=== PATIENT | male | born 1965 | race African-American/Black ===

== ENCOUNTER 2017-07-22 18:54 | Emergency (ER) | payer SELFPAY ==
[~2017-07-22 18:54] MED LIST: Iopamidol 370 76% 100 ML VIAL ONE
[2017-07-22 19:17] LABS: #Eosinphils 0.1 thou/uL (0.0-0.7); #Lymphocytes 1.8 thou/uL (1.20-3.40); #Monocytes 0.7 thou/uL (0.11-0.59); #Neutrophils 5.3 thou/uL (1.40-6.50); %Basophils 0.6 % (0.0-1.0); %Eosinophils 1.8 % (0.0-10.0); %Lymphocytes 22.5 % (21.0-51.0); %Monocytes 8.9 % (0.0-10.0); %Neutrophils 66.2 % (42.0-75.0); Mean Corpuscular Hemoglobin 27.9 pg (27.0-31.0); Mean Corpuscular Volume 84.6 fl (80.0-94.0); Mean Platelet Volume 8.6 fL (7.4-10.4); Platelet Count 230 thou/uL (130-400); RBC Distribution Width 12.8 % (11.5-14.5); Red Blood Cell (RBC) Count 5.36 mill/uL (4.70-6.10)
[2017-07-22 19:40] LABS: ALT (SGPT) 15 U/L (8-55); AST (SGOT) 18 U/L (5-34); Alkaline Phosphatase 109 U/L (40-150); Anion Gap 11 mmol/L (10-20); BUN (Urea Nitrogen) 10 mg/dL (8.4-25.7); Bilirubin, Total 0.9 mg/dL (0.2-1.2); Calc. Creatinine Clearance 0 mL/min (70-130); Calcium 8.9 mg/dL (7.8-10.44); Carbon Dioxide 27 mmol/L (22-29); Chloride 104 mmol/L (98-107); Estimated GFR-MDRD Greater than 90; Globulin 3.4 g/dL (2.4-3.5); Glucose 92 mg/dL (70-105); Potassium 3.9 mmol/L (3.5-5.1); Protein, Total 7.4 g/dL (6.0-8.3); Sodium 138 mmol/L (136-145)
[2017-07-22 19:48] LABS: Bilirubin Negative (Negative); Blood, Urine Negative (Negative); Clarity CLEAR (Clear); Glucose, Urine (Dipstick) Negative (Negative); Leukocyte Moderate (Negative); Nitrite Negative (Negative); Protein, Urine (Dipstick) Negative (Neg-Trace); Specific Gravity, Urine 1.025 (1.002-1.036); Urobilinogen 0.2 mg/dL (0.2-1.0); pH, Urine 6.5 (5.0-9.0)
[2017-07-22 19:50] LABS: Bacteria/HPF None Seen HPF (None Seen); Hyaline Casts/LPF 4-6 HYALINE CAST LPF (0-3 Hyaline); Pathc Cast-AUWi Flag 0.14 (0-2.49); RBC/HPF 0-3 HPF (0-3); Squamous Epithelial 0-3 HPF (0-3)
--- NOTE | 2017-07-22 21:08 | CT ---
CT ABDOMEN AND PELVIS WITH IV CONTRAST 07/22/17 HISTORY: Abdominal pain. FINDINGS: There are mild dependent changes in the lung bases. Small low density lesions are seen in the liver, likely cyst. The largest measuring about 13 mm in the right lobe. The spleen, pancreas and adrenal gl ands are normal. No calcified gallstones are seen. Multiple bilateral renal cysts are present. No aldo e air is seen. No lymphadenopathy identified. A small amount of free fluid is seen in the abdomen or pelvis. There is diffuse thickening in the wall of the colon. Prostate is enlarged. There are vascula r calcifications without evidence of aneurysmal dilatation of the abdominal aorta. A small hiatal her cailin is present. There are degenerative changes in the spine. There are degenerative changes in the spine. IMPRESSION: 1. Probable hepatic cysts. 2. Bilateral renal cysts. 3. Small hiatal hernia. 4. Findings suspicious for colitis. Further evaluation with colonoscopy is recommended. 5. Prostatic enlargement. POS: [facility]
== END 2017-07-22 22:01 | disposition home or self-care (01) ==
LOC: ERS 18:54
DX: K52.9 Noninfective gastroenteritis and colitis, unspecified (principal); I10 Essential (primary) hypertension; F17.210 Nicotine dependence, cigarettes, uncomplicated; Z71.6 Tobacco abuse counseling
CPT/HCPCS: 36415; 74177; 80053; 81003; 81015; 83690; 85025; 96360; 99406

== ENCOUNTER 2017-09-21 20:44 | Emergency (ER) | payer SELFPAY ==
[2017-09-21 21:17] LABS: #Basophils 0.1 thou/uL (0.0-0.2); #Eosinphils 0.2 thou/uL (0.0-0.7); #Lymphocytes 2.2 thou/uL (1.20-3.40); #Monocytes 0.4 thou/uL (0.11-0.59); #Neutrophils 2.6 thou/uL (1.40-6.50); %Eosinophils 4.3 % (0.0-10.0); %Monocytes 7.1 % (0.0-10.0); %Neutrophils 47.6 % (42.0-75.0); Hemoglobin 14.6 g/dL (14.0-18.0); Mean Corpuscular HGB CONC 33.1 g/dL (32.0-36.0); Mean Corpuscular Volume 84.5 fL (78.0-98.0); Mean Platelet Volume 8.7 fL (7.4-10.4); Platelet Count 226 thou/uL (130-400); RBC Distribution Width 12.8 % (11.5-14.5); Red Blood Cell (RBC) Count 5.23 mill/uL (4.70-6.10); White Blood Cell (WBC) Count 5.5 thou/uL (4.8-10.8)
[2017-09-21 21:41] LABS: ALT (SGPT) 19 U/L (8-55); AST (SGOT) 31 U/L (5-34); Albumin 4.4 g/dL (3.5-5.0); Alkaline Phosphatase 107 U/L (40-150); Anion Gap 11 mmol/L (10-20); BUN (Urea Nitrogen) 15 mg/dL (8.4-25.7); Calc. Creatinine Clearance 0 mL/min (70-130); Calcium 9.4 mg/dL (7.8-10.44); Carbon Dioxide 26 mmol/L (22-29); Chloride 106 mmol/L (98-107); Estimated GFR-MDRD Greater than 90; Globulin 3.9 g/dL (2.4-3.5); Glucose 86 mg/dL (70-105); Lipase 27 U/L (8-78); Potassium 4.4 mmol/L (3.5-5.1); Protein, Total 8.3 g/dL (6.0-8.3); Sodium 139 mmol/L (136-145)
[2017-09-22 00:50] LABS: Bilirubin Small (Negative); Blood, Urine Negative (Negative); Clarity CLOUDY (Clear); Glucose, Urine (Dipstick) Negative (Negative); Leukocyte Moderate (Negative); Nitrite Negative (Negative); Protein, Urine (Dipstick) Trace mg/dL (Neg-Trace); Specific Gravity, Urine 1.033 (1.002-1.036); Urobilinogen 0.2 mg/dL (0.2-1.0); pH, Urine 5.5 (5.0-9.0)
[2017-09-22 00:53] LABS: Bacteria/HPF None Seen HPF (None Seen); WBC/HPF 21-50 HPF (0-3)
[2017-09-22 00:56] LABS: Hyaline Casts/LPF 0-3 HYALINE CAST LPF (0-3 Hyaline); Other Casts/LPF None Seen LPF (0-3 Hyaline); Oval Fat Bodies/HPF None Seen HPF (None Seen); Renal Epithelial None Seen HPF (0-3); Sperm/HPF None Seen HPF (None Seen); Transitional Epithelial NONE SEEN HPF (0-3); Trichomonas/HPF None Seen HPF (None Seen); Yeast-All Forms None Seen HPF (None Seen)
[2017-09-22] MEDS ORDERED: Bisacodyl 10 MG SUPP ONE (01:35)
--- NOTE | 2017-09-22 08:03 | RAD ---
KUB: Date: 09/22/17 COMPARISON: None. HISTORY: Abdominal pain. FINDINGS: Supine imaging is provided, limiting assessment for free intraperitoneal air and small bowel obstruct ion. The bowel gas pattern appears nonobstructed. IMPRESSION: Nonobstructed bowel gas pattern. POS: [facility]
== END 2017-09-22 03:03 | disposition home or self-care (01) ==
LOC: ERS 20:44
DX: K59.00 Constipation, unspecified (principal); N41.9 Inflammatory disease of prostate, unspecified; I10 Essential (primary) hypertension; N39.0 Urinary tract infection, site not specified; F17.210 Nicotine dependence, cigarettes, uncomplicated
CPT/HCPCS: 36415; 74018; 80053; 81003; 81015; 83690; 85025; 87077; 87086

== ENCOUNTER 2022-02-19 14:44 | Emergency (ER) | payer SELFPAY ==
[2022-02-19 17:33] LABS: SARS-CoV-2 NAA Rapid Test Not Detected (NotDetected)
== END 2022-02-19 18:05 | disposition home or self-care (01) ==
LOC: ERS 14:44
DX: B34.9 Viral infection, unspecified (principal); I10 Essential (primary) hypertension; F17.210 Nicotine dependence, cigarettes, uncomplicated; Z20.822 Contact with and (suspected) exposure to COVID-19
CPT/HCPCS: 71045

== ENCOUNTER 2023-10-18 08:09 | Observation (INO) | payer SELFPAY ==
[2023-10-18 08:44] LABS: #Basophils 0.05 10x3/uL (0.0-0.2); %Basophils 0.9 % (0.0-1.0); %Eosinophils 2.6 % (0.0-10.0); %Monocytes 8.6 % (0.0-10.0); %Neutrophils 51.7 % (42.0-75.0); Hematocrit 47.7 % (42.0-52.0); Hemoglobin 15.1 g/dL (14.0-18.0); Mean Corpuscular HGB CONC 31.7 g/dL (32.0-36.0); Mean Corpuscular Hemoglobin 26.8 pg (27.0-31.0); Mean Corpuscular Volume 84.6 fL (78.0-98.0); Mean Platelet Volume 11.2 fL (7.4-10.4); Platelet Count 211 10x3/uL (130-400); RBC Distribution Width 14.3 % (11.5-14.5); Red Blood Cell (RBC) Count 5.64 mill/uL (4.70-6.10)
[2023-10-18 08:59] LABS: INR-International Normal Ratio 0.9; PTT 27.6 sec (22.9-36.1); Prothrombin Time 12.3 sec (12.0-14.7)
[2023-10-18 09:00] LABS: ALT (SGPT) 18 U/L (8-55); AST (SGOT) 20 U/L (5-34); Albumin 3.9 g/dL (3.5-5.0); Alkaline Phosphatase 82 U/L (40-110); Anion Gap 12 mmol/L (10-20); BUN (Urea Nitrogen) 15 mg/dL (8.4-25.7); Bilirubin, Total 0.6 mg/dL (0.2-1.2); CK (CPK) 313 U/L (30-200); Calc. Creatinine Clearance 0 mL/min (70-130); Carbon Dioxide 24 mmol/L (22-29); Chloride 109 mmol/L (98-107); Estimated GFR 93; Globulin 3.6 g/dL (2.4-3.5); Glucose 92 mg/dL (70-105); Potassium 4.3 mmol/L (3.5-5.1); Protein, Total 7.5 g/dL (6.0-8.3); Sodium 141 mmol/L (136-145)
[2023-10-18 09:05] LABS: Troponin I Less than 0.010 ng/mL (< 0.028)
[2023-10-18] MEDS ORDERED: Aspirin Chewable 81 MG TAB ONE (09:41)
[2023-10-18] MEDS ORDERED: Ondansetron ODT 4 MG TAB PO PRN (11:03)
[2023-10-18] MEDS ORDERED: Acetaminophen 325 MG TAB PO PRN (11:03)
[2023-10-18 12:06] LABS: Troponin I Less than 0.010 ng/mL (< 0.028)
[2023-10-18] MEDS ORDERED: Clopidogrel Bisulfate 75 MG TAB ONE (14:30)
[2023-10-18 14:58] LABS: Troponin I Less than 0.010 ng/mL (< 0.028)
[2023-10-18] MEDS ORDERED: Iopamidol-370 76% 500 ML MDV (1 ML CHARGE) ONE (15:03)
[2023-10-18 19:56] VITALS: BMI 30.7
[2023-10-18] MEDS: Atorvastatin Calcium 40 MG TAB PO SCH (23:30)
[2023-10-18] MEDS: Clopidogrel Bisulfate 75 MG TAB PO SCH (23:30)
[2023-10-19 04:54] LABS: Hemoglobin A1c 5.8 % (4.0-6.0)
[2023-10-19 05:01] LABS: Cardiac Risk 5.2 (Less than 4.5)
[2023-10-19 08:13] VITALS: TEMP 98
[2023-10-19] MEDS: Aspirin 81 mg Enteric Coated Tablet PO SCH (09:08)
[2023-10-19] MEDS: Clopidogrel Bisulfate 75 MG TAB PO SCH (09:09)
[2023-10-19 11:36] VITALS: BP 140/92
== END 2023-10-19 12:15 | disposition home or self-care (01) ==
LOC: ERS 08:09 → ERHOLD 09:59 → 2SE 17:48
PROVIDERS: ADMIT Internal Medicine; ATTEND Internal Medicine
DX: R20.0 Anesthesia of skin (principal); I10 Essential (primary) hypertension; K21.9 Gastro-esophageal reflux disease without esophagitis; N40.1 Benign prostatic hyperplasia with lower urinary tract symptoms; N39.0 Urinary tract infection, site not specified; F17.210 Nicotine dependence, cigarettes, uncomplicated; G45.9 Transient cerebral ischemic attack, unspecified; E78.5 Hyperlipidemia, unspecified; Z79.899 Other long term (current) drug therapy
CPT/HCPCS: 0042T; 36415; 36416; 70450; 70496; 70498; 70551; 71045; 80053; 80061; 82550; 83036; 84484; 85025; 85610; 85730; 93005; 94760; G0378; Q9967

== ENCOUNTER 2023-12-26 09:59 | Outpatient (CLI) | payer OTHER | END 2023-12-26 10:00 | disposition home or self-care (01) | LOC: BICRAD 09:59 | PROVIDERS: ATTEND Nurse Practitioner Family | DX: R22.42 Localized swelling, mass and lump, left lower limb (principal); M17.12 Unilateral primary osteoarthritis, left knee; M25.462 Effusion, left knee; M79.89 Other specified soft tissue disorders ==

== ENCOUNTER 2024-02-07 10:46 | Emergency (ER) | payer OTHER ==
[2024-02-07 11:45] LABS: Bacteria/HPF 4+ HPF (None Seen); Bilirubin Negative (Negative); Blood, Urine Negative (Negative); CAUTI Indications for Culture Dysuria,urgency,freq; Clarity Clear (Clear); Glucose, Urine (Dipstick) Normal (Negative); Ketone, Urine Negative (Negative); Leukocyte 500 Leu/uL (Negative); Nitrite Negative (Negative); Protein, Urine (Dipstick) Negative (Neg-Trace); RBC/HPF 0-3 HPF (0-3); Specific Gravity, Urine 1.012 (1.002-1.036); Squamous Epithelial 0-3 HPF (0-3); WBC/HPF 21-50 HPF (0-3); pH, Urine 6.5 (5.0-9.0)
[2024-02-07 11:49] LABS: Urine Culture Reflex Yes Yes
== END 2024-02-07 12:17 | disposition home or self-care (01) ==
LOC: ERS 10:46
DX: R30.0 Dysuria (principal); I10 Essential (primary) hypertension; F17.210 Nicotine dependence, cigarettes, uncomplicated; Z79.899 Other long term (current) drug therapy
CPT/HCPCS: 81001; 87077; 87086; 87186; 99283

== ENCOUNTER 2024-03-17 08:45 | Emergency (ER) | payer OTHER ==
[2024-03-17 09:24] LABS: Hematocrit 45.4 % (42.0-52.0); Hemoglobin 14.5 g/dL (14.0-18.0); Mean Corpuscular HGB CONC 31.9 g/dL (32.0-36.0); Mean Corpuscular Hemoglobin 26.3 pg (27.0-31.0); Mean Corpuscular Volume 82.2 fL (78.0-98.0); Mean Platelet Volume 11.3 fL (7.4-10.4); Platelet Count 207 10x3/uL (130-400); RBC Distribution Width 14.3 % (11.5-14.5); Red Blood Cell (RBC) Count 5.52 mill/uL (4.70-6.10)
[2024-03-17 09:27] LABS: Prothrombin Time 13.3 sec (12.0-14.7)
[2024-03-17 09:28] LABS: PTT 31.3 sec (22.9-36.1)
[2024-03-17 09:35] LABS: ALT (SGPT) 19 U/L (8-55); AST (SGOT) 19 U/L (5-34); Albumin 3.7 g/dL (3.5-5.0); Alkaline Phosphatase 73 U/L (40-110); Anion Gap 13 mmol/L (10-20); BUN (Urea Nitrogen) 11 mg/dL (8.4-25.7); Bilirubin, Total 0.6 mg/dL (0.2-1.2); Calc. Creatinine Clearance 0 mL/min (70-130); Calcium 9.3 mg/dL (7.8-10.44); Carbon Dioxide 23 mmol/L (22-29); Chloride 107 mmol/L (98-107); Estimated GFR 102; Globulin 4.1 g/dL (2.4-3.5); Glucose 105 mg/dL (70-105); Protein, Total 7.8 g/dL (6.0-8.3); Sodium 139 mmol/L (136-145)
[2024-03-17 09:39] LABS: Troponin I Less than 0.010 ng/mL (< 0.028)
[2024-03-17 09:57] LABS: Burr Cells SLIGHT = 2-5 cells HPF (0-1); Eosinophils 5 % (0-10); Lymphocytes 19 % (21-51); Monocytes 19 % (0-10); Neutrophil 43 % (42-75); Platelet Adequacy Comment Platelets Normal; Polychromasia SLIGHT = 2-3 cells HPF (0-2); Reactive Lymphocytes 8 % (0-10)
[2024-03-17] MEDS ORDERED: Iopamidol-370 76% 500 ML MDV (1 ML CHARGE) ONE (11:15)
== END 2024-03-17 11:40 | disposition home or self-care (01) ==
LOC: ERS 08:45
DX: G45.9 Transient cerebral ischemic attack, unspecified (principal); J06.9 Acute upper respiratory infection, unspecified; R29.700 NIHSS score 0; I10 Essential (primary) hypertension; E78.5 Hyperlipidemia, unspecified; J44.9 Chronic obstructive pulmonary disease, unspecified; N40.1 Benign prostatic hyperplasia with lower urinary tract symptoms; F17.210 Nicotine dependence, cigarettes, uncomplicated; Z79.899 Other long term (current) drug therapy
CPT/HCPCS: 36416; 70450; 70496; 70498; 71045; 80053; 84484; 85025; 85610; 85730; 87428; 93005; 94760; Q9967

== ENCOUNTER 2024-11-27 06:34 | Emergency (ER) | payer OTHER, SELFPAY | END 2024-11-27 08:03 | disposition home or self-care (01) | LOC: ERS 06:34 | DX: J01.90 Acute sinusitis, unspecified (principal); I10 Essential (primary) hypertension; J44.9 Chronic obstructive pulmonary disease, unspecified; F17.210 Nicotine dependence, cigarettes, uncomplicated; Z86.73 Personal history of transient ischemic attack (TIA), and cerebral infarction without residual deficits | CPT/HCPCS: 87428; 99283 ==

== ENCOUNTER 2024-12-19 10:38 | Emergency (ER) | payer OTHER ==
[2024-12-19] MEDS ORDERED: Ketorolac Tromethamine 30 MG (1 mL) VIAL ONE (10:56)
== END 2024-12-19 12:00 | disposition home or self-care (01) ==
LOC: ERS 10:38
DX: M17.12 Unilateral primary osteoarthritis, left knee (principal); I10 Essential (primary) hypertension; F17.210 Nicotine dependence, cigarettes, uncomplicated; Z79.899 Other long term (current) drug therapy; Z86.73 Personal history of transient ischemic attack (TIA), and cerebral infarction without residual deficits
CPT/HCPCS: 96372; 99283; J1885